=== PATIENT | female | born 1960 | race Caucasian/White ===

== ENCOUNTER 2017-07-16 13:57 | Emergency (ER) | payer MEDICAID, OTHER ==
[~2017-07-16] VITALS: Ht 160 cm; Wt 79.0 kg
[2017-07-16 14:00] VITALS: Ht 160 cm; Wt 79.0 kg
--- NOTE | 2017-07-16 14:25 | ERD ---
ER Documentation Chief Complaint Chief Complaint Mechanical fall, Right rib pain, Facial pain, Head pain, Facial abrasions, Hand pain HPI The patient is 57-year-old female who presents to the Emergency Department with complaint of multiple injuries s/p mechanical trip and fall. The patient reports that while at work yesterday she accidentally fell, hitting her right ribs, right hand, left hand, face/head. She notes some pain to the upper dentition and right upper lip, with associated swelling and abrasions. The patient also reports pain to the right lateral ribs, that is worsened with palpation, movement, and upon taking deep breaths. She admits to possible loss of consciousness. Otherwise, denies any syncope, near-syncope, seizure-like activity. Denies difficulty with speech or ambulation. Denies numbness, paresthesias or weakness of the distal extremities. Denies restricted range of motion. Denies neck pain, visual changes, diplopia, blurred vision, vision loss. Denies vomiting. Denies chest pain, palpitations, shortness of breath, lower extremity swelling. She rates her current pain as 8-9/10. She has not yet taken any medication for pain relief. No other complaints at this time. ROS All systems reviewed and are negative except as per history of present illness. Medications Home Meds Active Scripts Hydrocodone/Acetaminophen ([place] 5-325 Tablet) 1 Each Tablet, 1 EACH PO Q6, #10 TAB Prov:GUILHERME CUNHA PA-C 07/16/17 Ibuprofen* (Motrin*) 600 Mg Tab, 600 MG PO Q6, #30 TAB Prov:GUILHERME CUNHA PA-C 07/16/17 Allergies Allergies: Coded Allergies: Penicillins (Verified Allergy, Unknown, 07/16/17) PMhx/Soc Hx Alcohol Use: No Hx Substance Use: No Hx Tobacco Use: No Physical Exam Vitals Vital Signs Date Time Temp Pulse Resp B/P Pulse Ox O2 Delivery O2 Flow Rate FiO2 07/16/17 16:58 97.9 84 18 142/70 99 Room Air 07/16/17 14:00 98.1 83 18 160/84 99 Physical Exam GENERAL: Well-developed, well-nourished, female, in no acute distress. HEENT: Head is normocephalic. No hematomas. No scleral pallor or icterus. Pupils equal, round and reactive to light. Extraocular movements intact. Conjunctiva pink. No raccoon eyes. No nasal CSF leak. No nasal septal hematoma. No epistaxis. Bilaterally tympanic membranes are clear with no evidence of erythema, effusion or dulling of the light reflex. No hemotympanum. No allen sign. Moist mucous membranes. Clear oropharynx. Mild swelling of right upper lip. Small chip of tooth #8. Poor dentition. No dental mobility or fracture. NECK: Supple. No masses, no tenderness, no lymphadenopathy. Trachea midline. No posterior midline cervical tenderness. Full range of motion. No crepitus. No step-offs. RESPIRATORY: Lungs are clear to auscultation bilaterally. Equal breath sounds. Normal expiratory effort. CHEST WALL: Tenderness to palpation over the right lateral ribs. No crepitus. Symmetrical expansion. No flail chest. No ecchymosis. CARDIOVASCULAR: Regular rate and rhythm. S1 and S2 normal. Distal pulses are palpable, 2+ bilaterally. Capillary refill is less than 2 seconds. GASTROINTESTINAL: Abdomen is soft, non-tender, and non-distended. BACK: No midline tenderness. Normal range of motion. EXTREMITIES: No clubbing, cyanosis, or edema. Normal skin perfusion. Mild swelling with tenderness to palpation over the hypothenar eminence of the left hand. Mild swelling to the lateral aspect of the dorsum of the right hand. Normal flexion and extension of the wrists bilaterally. Normal flexion and extension at the MCP, PIP and DIP joints. No snuffbox tenderness. No wrist drop.. Muscle tone is normal. No focal swelling or erythema. The pulses are palpable, 2+ bilaterally. Capillary refill is less than 2 seconds. NEUROLOGIC: The patient is alert, awake, and oriented x 3. No focal neurologic deficits. Cranial nerves are grossly intact. Gait is observed and normal. There is no ataxia. Motor normal in all extremities. Sensation grossly intact. INTEGUMENT: Facial abrasions noted. No ecchymosis. PSYCHIATRIC: Cooperative. Appropriate. Results 24 hrs Current Medications Medications (Trade) Dose Ordered Sig/Lala Route PRN Reason Start Time Stop Time Status Last Admin Dose Admin Acetaminophen/ Hydrocodone Bitart ([place] (5/325)) 1 tab ONCE ONCE PO 07/16/17 14:30 07/16/17 14:31 DC 07/16/17 14:34 Bacitracin (Bacitracin Oint (Ud)) 1 applic ONCE ONCE TOP 07/16/17 14:30 07/16/17 14:31 DC 07/16/17 14:34 Procedures/MDM ED COURSE: The patient was stable throughout ED course. I kept the patient and/or family informed of laboratory and diagnostic imaging results throughout the ED course. The case was reviewed and discussed with Dr. Aceves, who agree with the plan of care including treatment and advanced imaging as appropriate. DIAGNOSTIC TESTS AND INTERPRETATION: PROCEDURE: CT Brain without contrast. CLINICAL INDICATION: Fall. Head injury and pain. TECHNIQUE: A multiplanar CT of the brain was performed on a CT scanner utilizing axial imaging from the skull base through the vertex without IV contrast. The CTDIvol is 44.97 mGy and the DLP is 720.23 mGycm. One or more of the following dose reduction techniques were utilized: Automated exposure control, adjustment of the mA and/or kV according to patient size, use of iterative reconstruction technique. COMPARISON: None FINDINGS: No evidence of intracranial hemorrhage or abnormal extra-axial fluid collection. The brain parenchyma is normal attenuation morphology with preservation of solorio white differentiation and age appropriate size of the ventricles and subarachnoid spaces. Partially empty sella. The basal cisterns, posterior fossa contents, brainstem, craniocervical junction , orbits, pituitary axis, paranasal sinuses, mastoid air cells, and calvarium are unremarkable. IMPRESSION: 1. No intracranial hemorrhage or acute intracranial abnormality. Physician Jus Date Time Electronically viewed and signed by Physician Jus on 07/16/2017 15:12 PROCEDURE: CT Cervical Spine without contrast. CLINICAL INDICATION: Fall. Neck pain. TECHNIQUE: A CT of the cervical spine was performed on a CT scanner utilizing thin section axial images from the skull base through the thoracic inlet. Sagittal and coronal reformatted images were made. The CTDIvol is 22.19 mGy and the DLP is 471.29 mGycm. One or more of the following dose reduction techniques were utilized: Automated exposure control, adjustment of the mA and/or kV according to patient size, use of iterative reconstruction technique. COMPARISON: No prior studies are available for comparison. FINDINGS: There is a normal lordosis of the cervical spine. The vertebral bodies are normal in height and alignment with mild osteopenia. Bone island in the left posterior lamina of C2. No evidence of fracture or dislocation mild multilevel anterior endplate enthesopathy greatest at C6-C7. C2-3: The disc is normal in height. No significant disk bulge or protrusion is evident. There is no central canal stenosis or foraminal narrowing. C3-4: The disc is normal in height. Broad-based central disc protrusion measuring 4 mm in AP dimension. Most of 7 mm in AP dimension. No foraminal stenosis C4-5: The disc is normal in height. Small broad-based central disc protrusion measuring 3 mm in AP dimension with mild central canal stenosis of 9 mm in AP dimension no foraminal stenosis. C5-6: The disc is normal in height. No significant disk bulge or protrusion is evident. There is no central canal stenosis or foraminal narrowing. C6-7: The disc is normal in height. No significant disk bulge or protrusion is evident. There is no central canal stenosis or foraminal narrowing. C7-T1: The disc is normal in height. No significant disk bulge or protrusion is evident. There is no central canal stenosis or foraminal narrowing. No paravertebral soft tissue abnormality. The lung apices are clear. IMPRESSION: 1. No fracture or dislocation. Mild osteopenia. 2. Small broad-based disc protrusions at C3-C4 and C4-C5 levels resulting in moderate central canal stenosis of 7 mm at C3-C4 and mild central canal stenosis of 9 mm at C4-C5. 3. No other central canal or foraminal stenosis at any level. 4. Mild multilevel degenerative enthesopathy. Physician Jus Date Time Electronically viewed and signed by Physician Jus on 07/16/2017 15:27 PROCEDURE: CT facial bones without. CLINICAL INDICATION: Head trauma. Facial pain. TECHNIQUE: A CT of the facial bones was performed on a multidetector CT scanner utilizing high-resolution axial images. Sagittal, coronal, and multiplanar reformatted images were made. Additionally, 3-D reformatted images were made. The CTDIvol is 29.42 mGy and the DLP is 510.22 mGy-cm. One or more of the following dose reduction techniques were utilized: Automated exposure control, adjustment of the mA and/or kV according to patient size, use of iterative reconstruction technique. COMPARISON: None. FINDINGS: The osseous structures are intact with no evidence of fracture. The orbits, as visualized, appear intact. The overlying soft tissues are grossly unremarkable. The visualized paranasal sinuses are clear. 2.4 cm soft tissue density in the right maxillary sinus compatible with mucous retention cyst. Mild circumferential mucosal thickening in the left maxillary sinus. Rightward deviation of the anterior nasal septum without obstruction. Partially empty sella. Arterial calcification of the cavernous carotid. IMPRESSION: 1. Negative CT of the facial bones with no evidence of acute traumatic injury. Physician Jus Date Time Electronically viewed and signed by Physician Jus on 07/16/2017 15:18 PROCEDURE: XR Ribs. CLINICAL INDICATION: Pain TECHNIQUE: Multiple oblique views of the right ribs were obtained. The images were reviewed on a PACS workstation. COMPARISON: None. FINDINGS:Rib series demonstrates no displaced rib fracture. No pneumothorax is seen. The underlying lung is clear. IMPRESSION:No displaced rib fracture identified .Ramírez Pedersen MD, MD Date Time Electronically viewed and signed by .Ramírez Pedersen MD, on 07/16/2017 16:16 PROCEDURE: Chest x-ray CLINICAL INDICATION: Fall with chest pain TECHNIQUE: Chest single view COMPARISON: None FINDINGS:The heart is normal in size. The pulmonary vessels are normal in caliber. The lungs are clear. Calcified granuloma in the left mid lung field The costophrenic angles are sharp. The visualized bony thorax is unremarkable. IMPRESSION: No acute cardiopulmonary disease. Old granulomatous disease No evidence of pneumothorax .Ramírez Pedersen MD, MD Date Time Electronically viewed and signed by .Ramírez Pedersen MD, MD on 07/16/2017 16:15 PROCEDURE: XR Hands. CLINICAL INDICATION: Trauma. Bilateral hand pain. TECHNIQUE: Frontal, oblique, and lateral views of the right hand. Frontal, oblique, and lateral views of the left hand. Total of six views. COMPARISON: No prior studies are available for comparison. FINDINGS: There is no fracture or dislocation. The soft tissues are normal. Articular surfaces are intact. There is no lytic or blastic lesion. There is no radiopaque foreign body. IMPRESSION: 1. Unremarkable bilateral hand x-rays series. .Tonny Davis MD, MD Date Time Electronically viewed and signed by .Tonny Davis MD, MD on 07/16/2017 16:30 MEDICAL DECISION MAKING: The patient is 57-year-old female presenting to the Emergency Department with complaint of multiple injuries s/p mechanical trip and fall. The patient complaints of pain to her right ribs, right hand, left hand, face/head. She notes some pain to the upper dentition and right upper lip , with associated swelling and abrasions. Her extremities were neurovascularly intact with no gross deformities or crepitus noted. No snuffbox tenderness. Compartments were soft. She was GCS 15 with no focal neurologic deficits. No dental socket avulsion/mobility. The differential diagnosis includes, but is not limited to, sprain, strain, fracture, dislocation, subluxation, neurovascular injury, intracranial bleeding, cervical spine injury/fracture, cord injury, pneumothorax, hemothorax, pulmonary contusion, compartment syndrome. No evidence of neurovascular compromised distal to injury. No evidence of compartment syndrome or occult fracture. No significant acute abnormalities were noted on the diagnostic test modalities ordered. After rest and administration of [place], the patient reports no new complaints and decreased pain. Upon my review and interpretation of the patients presentation, clinical data, and overall ER course, I believe the patients symptoms are most consistent with facial abrasions, rib contusion, hand contusion, closed head injury s/p fall. The patient's abrasions were cleansed in the ED and bacitracin was applied. At this time, the patient is in stable condition, and therefore she can be discharged home with a prescription for ibuprofen and [place] and given strict return precautions for signs of worsening condition. The patient is advised to follow up with a primary care provider within 1-2 days for reevaluation and further management, or to return to the ER sooner for any worsening symptoms. She is instructed on further outpatient pain control methods, including rest, icing and elevation. I shared all diagnostic imaging studies with the patient at length and in great detail, and the patient verbally understands and agrees with the plan for further observation and care as an outpatient. At the time of discharge all questions were answered. Departure Diagnosis: Primary Impression: Rib contusion Encounter type: initial encounter Laterality: right Qualified Code: S20.211A - Contusion of rib on right side, initial encounter Additional Impressions: Facial abrasion Encounter type: initial encounter Qualified Code: S00.81XA - Abrasion of face, initial encounter Hand contusion Encounter type: initial encounter Laterality: unspecified laterality Qualified Code: S60.229A - Contusion of hand, unspecified laterality, initial encounter Fall Encounter type: initial encounter Qualified Code: W19.XXXA - Fall, initial encounter Closed head injury Encounter type: initial encounter Qualified Code: S09.90XA - Closed head injury, initial encounter Condition: Stable Patient Instructions: Abrasion, Fall, Mechanical, R.I.C.E., Rib Contusion [facility] Additional Instructions: Llame al doctor MAANA y kelly miguelina LUPE PARA DENTRO DE 1-2 DAVILA.Dgale a la secretaria que nosotros le instruimos hacer esta lupe.Avise o llame si carroll condicin se empeora antes de la lupe. Regresa aqui si peor o no mejor. GUILHERME CUNHA PA-C Jul 16, 2017 14:25
[2017-07-16] MEDS ORDERED: HYDROCODONE/APAP (5/325) TAB PO ONE (14:30)
[2017-07-16] MEDS ORDERED: BACITRACIN 0.9 GM OINT TOP ONE (14:30)
--- NOTE | 2017-07-16 15:12 | RADRPT ---
PROCEDURE: CT Brain without contrast. CLINICAL INDICATION: Fall. Head injury and pain. TECHNIQUE: A multiplanar CT of the brain was performed on a CT scanner utilizing axial imaging fro m the skull base through the vertex without IV contrast. The CTDIvol is 44.97 mGy and the DLP is 72 0.23 mGycm. One or more of the following dose reduction techniques were utilized: Automated exposu re control, adjustment of the mA and/or kV according to patient size, use of iterative reconstructio n technique. COMPARISON: None FINDINGS: No evidence of intracranial hemorrhage or abnormal extra-axial fluid collection. The brain parenchyma is normal attenuation morphology with preservation of solorio white differentiatio n and age appropriate size of the ventricles and subarachnoid spaces. Partially empty sella. The basal cisterns, posterior fossa contents, brainstem, craniocervical junction, orbits, pituitary axis, paranasal sinuses, mastoid air cells, and calvarium are unremarkable. IMPRESSION: 1. No intracranial hemorrhage or acute intracranial abnormality. RPTAT: HH Physician Jus Date Time Electronically viewed and signed by Physician Jus on 07/16/2017 15:12 RON/
--- NOTE | 2017-07-16 15:18 | RADRPT ---
PROCEDURE: CT facial bones without. CLINICAL INDICATION: Head trauma. Facial pain. TECHNIQUE: A CT of the facial bones was performed on a multidetector CT scanner utilizing high-res olution axial images. Sagittal, coronal, and multiplanar reformatted images were made. Additionall y, 3-D reformatted images were made. The CTDIvol is 29.42 mGy and the DLP is 510.22 mGy-cm. One or more of the following dose reduction techniques were utilized: Automated exposure control, adjustme nt of the mA and/or kV according to patient size, use of iterative reconstruction technique. COMPARISON: None. FINDINGS: The osseous structures are intact with no evidence of fracture. The orbits, as visualized, appear i ntact. The overlying soft tissues are grossly unremarkable. The visualized paranasal sinuses are c lear. 2.4 cm soft tissue density in the right maxillary sinus compatible with mucous retention cys t. Mild circumferential mucosal thickening in the left maxillary sinus. Rightward deviation of the a nterior nasal septum without obstruction. Partially empty sella. Arterial calcification of the sean nous carotid. IMPRESSION: 1. Negative CT of the facial bones with no evidence of acute traumatic injury. RPTAT: HH Physician Jus Date Time Electronically viewed and signed by Physician Jus on 07/16/2017 15:18 RON/
--- NOTE | 2017-07-16 15:27 | RADRPT ---
PROCEDURE: CT Cervical Spine without contrast. CLINICAL INDICATION: Fall. Neck pain. TECHNIQUE: A CT of the cervical spine was performed on a CT scanner utilizing thin section axial images from the skull base through the thoracic inlet. Sagittal and coronal reformatted images were made. The CTDIvol is 22.19 mGy and the DLP is 471.29 mGycm. One or more of the following dose red uction techniques were utilized: Automated exposure control, adjustment of the mA and/or kV accordi ng to patient size, use of iterative reconstruction technique. COMPARISON: No prior studies are available for comparison. FINDINGS: There is a normal lordosis of the cervical spine. The vertebral bodies are normal in height and alig nment with mild osteopenia. Bone island in the left posterior lamina of C2. No evidence of fracture or dislocation mild multilevel anterior endplate enthesopathy greatest at C6 -C7. C2-3: The disc is normal in height. No significant disk bulge or protrusion is evident. There is no central canal stenosis or foraminal narrowing. C3-4: The disc is normal in height. Broad-based central disc protrusion measuring 4 mm in AP dimensi on. Most of 7 mm in AP dimension. No foraminal stenosis C4-5: The disc is normal in height. Small broad-based central disc protrusion measuring 3 mm in AP dimension with mild central canal stenosis of 9 mm in AP dimension no foraminal stenosis. C5-6: The disc is normal in height. No significant disk bulge or protrusion is evident. There is no central canal stenosis or foraminal narrowing. C6-7: The disc is normal in height. No significant disk bulge or protrusion is evident. There is no central canal stenosis or foraminal narrowing. C7-T1: The disc is normal in height. No significant disk bulge or protrusion is evident. There is no central canal stenosis or foraminal narrowing. No paravertebral soft tissue abnormality. The lung apices are clear. IMPRESSION: 1. No fracture or dislocation. Mild osteopenia. 2. Small broad-based disc protrusions at C3-C4 and C4-C5 levels resulting in moderate central canal stenosis of 7 mm at C3-C4 and mild central canal stenosis of 9 mm at C4-C5. 3. No other central canal or foraminal stenosis at any level. 4. Mild multilevel degenerative enthesopathy. RPTAT: Alyson Browning Physician Date Time Electronically viewed and signed by Alyson Browning Physician on 07/16/2017 15:27 RON/
--- NOTE | 2017-07-16 16:15 | RADRPT ---
PROCEDURE: Chest x-ray CLINICAL INDICATION: Fall with chest pain TECHNIQUE: Chest single view COMPARISON: None FINDINGS: The heart is normal in size. The pulmonary vessels are normal in caliber. The lungs are clear. Luis Alberto cified granuloma in the left mid lung field The costophrenic angles are sharp. The visualized bony thorax is unremarkable. IMPRESSION: No acute cardiopulmonary disease. Old granulomatous disease No evidence of pneumothorax RPTAT: HH .Ramírez Pedersen MD, MD Date Time Electronically viewed and signed by .Ramírez Pedersen MD, on 07/16/2017 16:15 .W/
--- NOTE | 2017-07-16 16:16 | RADRPT ---
PROCEDURE: XR Ribs. CLINICAL INDICATION: Pain TECHNIQUE: Multiple oblique views of the right ribs were obtained. The images were reviewed on a PACS workstation. COMPARISON: None. FINDINGS: Rib series demonstrates no displaced rib fracture. No pneumothorax is seen. The underlying lung is clear. IMPRESSION: No displaced rib fracture identified RPTAT: HH .Ramírez Pedersen MD, Date Time Electronically viewed and signed by .Ramírez Pedersen MD, MD on 07/16/2017 16:16 .W/
--- NOTE | 2017-07-16 16:31 | RADRPT ---
PROCEDURE: XR Hands. CLINICAL INDICATION: Trauma. Bilateral hand pain. TECHNIQUE: Frontal, oblique, and lateral views of the right hand. Frontal, oblique, and lateral v iews of the left hand. Total of six views. COMPARISON: No prior studies are available for comparison. FINDINGS: There is no fracture or dislocation. The soft tissues are normal. Articular surfaces are intact. There is no lytic or blastic lesion. There is no radiopaque foreign body. IMPRESSION: 1. Unremarkable bilateral hand x-rays series. RPTAT: QQ .Tonny Davis MD, MD Date Time Electronically viewed and signed by .Tonny Davis MD, MD on 07/16/2017 16:30 .R/
[2017-07-16] MEDS ORDERED: IBUP-1542 PO (16:36)
[2017-07-16] MEDS ORDERED: HYDR-906 PO (16:36)
[2017-07-16 16:58] VITALS: BP 142/70; PULSE 84; RESP 18; TEMP 97.9
== END 2017-07-16 16:59 | disposition home or self-care (01) ==
LOC: FTE 13:57
DX: S20.211A Contusion of right front wall of thorax, initial encounter (principal); S60.229A Contusion of unspecified hand, initial encounter; S09.90XA Unspecified injury of head, initial encounter; W01.198A Fall on same level from slipping, tripping and stumbling with subsequent striking against other object, initial encounter; Y92.9 Unspecified place or not applicable
CPT/HCPCS: 70450; 70486; 71010; 71100; 72125; 73130; Z7502; Z7610